=== PATIENT | male | born 1960 | race Caucasian/White ===

== ENCOUNTER 2018-12-28 12:05 | Day surgery (SDC) | payer BC ==
[~2018-12-28] VITALS: Ht 193 cm; Wt 105.0 kg
[2018-12-28] MEDS ORDERED: Zocor20 MG (12:24)
[2018-12-28] MEDS ORDERED: LOSA50 (12:24)
--- NOTE | 2018-12-28 13:00 | NUR ---
12/28/18 1300 Prateek Gonzalez CALL LIGHT WITHIN REACH
== END 2018-12-28 14:50 | disposition home or self-care (01) ==
LOC: ORSCSDS 12:05
PROVIDERS: Ophthalmology
PROC: 08BN0ZZ Excision of Right Upper Eyelid, Open Approach (ICD-10-PCS; principal; 2018-12-28 13:45)
PROC: 08BP0ZZ Excision of Left Upper Eyelid, Open Approach (ICD-10-PCS; principal; 2018-12-28 13:45)
DX: H02.423 Myogenic ptosis of bilateral eyelids (principal); I10 Essential (primary) hypertension; E78.5 Hyperlipidemia, unspecified; Z79.899 Other long term (current) drug therapy
CPT/HCPCS: J0171; J2250; J3010; J7040

== ENCOUNTER 2022-07-09 13:05 | Day surgery (SDC) | payer BC ==
[~2022-07-09] VITALS: Ht 193 cm; Wt 103.3 kg
[~2022-07-09 13:05] MED LIST: LOSA50; Zocor20 MG
[2022-07-09 14:52] VITALS: BP 121/93
== END 2022-07-09 14:49 | disposition home or self-care (01) ==
LOC: ORSCSDS 13:05
PROVIDERS: Student in an Organized Health Care Education/Training Program
PROC: 0DBK8ZX Excision of Ascending Colon, Via Natural or Artificial Opening Endoscopic, Diagnostic (ICD-10-PCS; principal; 2022-07-09 14:15)
PROC: 0DBM8ZX Excision of Descending Colon, Via Natural or Artificial Opening Endoscopic, Diagnostic (ICD-10-PCS; principal; 2022-07-09 14:15)
PROC: 0DBN8ZX Excision of Sigmoid Colon, Via Natural or Artificial Opening Endoscopic, Diagnostic (ICD-10-PCS; principal; 2022-07-09 14:15)
PROC: 0DBP8ZX Excision of Rectum, Via Natural or Artificial Opening Endoscopic, Diagnostic (ICD-10-PCS; principal; 2022-07-09 14:15)
PROC: 0DBL8ZX Excision of Transverse Colon, Via Natural or Artificial Opening Endoscopic, Diagnostic (ICD-10-PCS; principal; 2022-07-09 14:15)
DX: Z12.11 Encounter for screening for malignant neoplasm of colon (principal); Z86.010 Personal history of colon polyps; D12.5 Benign neoplasm of sigmoid colon; D12.3 Benign neoplasm of transverse colon; D12.2 Benign neoplasm of ascending colon; K63.5 Polyp of colon; K62.1 Rectal polyp; I10 Essential (primary) hypertension; Z87.891 Personal history of nicotine dependence; Z79.899 Other long term (current) drug therapy
CPT/HCPCS: 88305; J2704; J7120